=== PATIENT | male | born 1995 | race Caucasian/White ===

== ENCOUNTER 2021-08-19 13:32 | Emergency (ER) | payer BC, OTHER, SELFPAY ==
--- NOTE | 2021-08-19 14:18 | RAD REPORT ---
EXAM DESCRIPTION: CT - Head Brain Wo Cont - 08/19/2021 2:08 pm CLINICAL HISTORY: TRAUMA Trauma, head injury COMPARISON: No comparisons TECHNIQUE: All CT scans are performed using dose optimization technique as appropriate and may inclu de automated exposure control or mA/KV adjustment according to patient size. FINDINGS: No intracranial hemorrhage, hydrocephalus or extra-axial fluid collection.No areas of brai n edema or evidence of midline shift. The paranasal sinuses and mastoids are clear. The calvarium is intact. IMPRESSION: No acute intracranial abnormality.
--- NOTE | 2021-08-19 14:21 | RAD REPORT ---
EXAM DESCRIPTION: CT - Spine Lumbar Wo Con - 08/19/2021 2:08 pm CLINICAL HISTORY: Radiculopathy. LOWER BACK PAIN COMPARISON: No comparisons TECHNIQUE: Axial noncontrast CT imaging of the lumbar spine was performed with coronal and sagittal re-formatted images. All CT scans are performed using dose optimization technique as appropriate and may include automated exposure control or mA/KV adjustment according to patient size. FINDINGS: No acute lumbar spine fracture seen. No aggressive marrow pattern or malalignment. Paraspinal tissues are normal in thickness. No paraspinal abscess or hematoma seen. Mild posterior disc bulges are present lower lumbar spine. IMPRESSION: No acute lumbar spine abnormality. Mild lower lumbar spondylosis is present with bulging of disc material. Follow-up nonemergent MRI lasha ging could be useful.
[2021-08-19] MEDS ORDERED: TETANUS & DIPHTHERIA TOX,ADULT 0.5 ML VIAL ONE (14:40)
--- NOTE | 2021-08-19 14:43 | EDPHYS ---
Physician Documentation [facility] Name: Obdulio Posadas Age: 25 yrs Sex: Male : 1995 Arrival Date: 08/19/2021 Time: 13:33 Bed 13 Private MD: ED Physician Octaviano Horton HPI: 08/19 15:01 This 25 yrs old Male presents to ER via Ambulatory with complaints of Fall Injury, Back kb Pain. 15:01 Details of fall: The patient fell from a height, from a ladder. Onset: The kb symptoms/episode began/occurred just prior to arrival. Associated injuries: The patient sustained injury to the head, pain, injury to the low back, pain, pain with movement, tenderness. Severity of symptoms: At their worst the symptoms were moderate, in the emergency department the symptoms are unchanged. The patient has not experienced similar symptoms in the past. The patient has not recently seen a physician. Pt was on a ladder that was leaned against a house. States he was at roof level when the ladder moved and he fell onto his back. c/o headache and low backp ain. Historical: - Allergies: 13:40 No Known Allergies; jd3 - Home Meds: 13:40 Adderall oral [Active]; jd3 - PMHx: 13:40 ADHD; jd3 - PSHx: 13:40 None; jd3 - Immunization history:: Adult Immunizations up to date, Client reports having NOT received the Covid vaccine. Flu vaccine is not up to date. - Social history:: Smoking status: Patient denies any tobacco usage or history of. - Immunization history: Last tetanus immunization: unknown. ROS: 15:00 Constitutional: Negative for fever, chills, and weight loss. kb 15:00 Back: Positive for pain at rest, pain with movement, of the low back area. 15:00 Neuro: Positive for dizziness, headache. 15:00 All other systems are negative. Exam: 15:00 Constitutional: This is a well developed, well nourished patient who is awake, alert, kb and in no acute distress. Head/Face: Normocephalic, atraumatic. Eyes: Pupils equal round and reactive to light, extra-ocular motions intact. Lids and lashes normal. Conjunctiva and sclera are non-icteric and not injected. Cornea within normal limits. Periorbital areas with no swelling, redness, or edema. ENT: Moist Mucous membranes Cardiovascular: Regular rate and rhythm with a normal S1 and S2. No gallops, murmurs, or rubs. No pulse deficits. Respiratory: Respirations even and unlabored. No increased work of breathing. Talking in full sentences Abdomen/GI: Soft, non-tender. No distention Skin: Warm, dry with normal turgor. Normal color. MS/ Extremity: Pulses equal, no cyanosis. Neurovascular intact. Full, normal range of motion. Neuro: Awake and alert, GCS 15, oriented to person, place, time, and situation. Moves all extremities. Normal gait. Psych: Awake, alert, with orientation to person, place and time. Behavior, mood, and affect are within normal limits. 15:00 Back: pain, that is moderate, of the lumbar area, ROM is painful, normal spinal alignment noted, CVA tenderness, is absent. Vital Signs: 13:41 BP 151 / 97; Pulse 81; Resp 18 S; Temp 97.2(TE); Pulse Ox 100% on R/A; Weight 113.4 kg jd3 (R); Height 5 ft. 10 in. (177.80 cm) (R); Pain 8/10; 13:41 Body Mass Index 35.87 (113.40 kg, 177.80 cm) jd3 Radha Coma Score: 13:51 Eye Response: spontaneous(4). Verbal Response: oriented(5). Motor Response: obeys jd3 commands(6). Total: 15. Trauma Score (Adult): 13:51 Eye Response: spontaneous(1); Verbal Response: oriented(1); Motor Response: obeys jd3 commands(2); Systolic BP: > 89 mm Hg(4); Respiratory Rate: 10 to 29 per min(4); [place] Score: 15; Trauma Score: 12 MDM: 13:45 Patient medically screened. kb 14:59 Data reviewed: vital signs, nurses notes. Data interpreted: Pulse oximetry: on room air kb is 100 %. Interpretation: normal. Counseling: I had a detailed discussion with the patient and/or guardian regarding: the historical points, exam findings, and any diagnostic results supporting the discharge/admit diagnosis, radiology results, the need for outpatient follow up, a family practitioner, to return to the emergency department if symptoms worsen or persist or if there are any questions or concerns that arise at home. 08/19 13:46 Order name: CT Head Brain wo Cont; Complete Time: 14:19 kb 08/19 13:46 Order name: CT Lumbar Spine Wo Con; Complete Time: 14:35 kb Administered Medications: 14:41 Drug: Tetanus-Diphtheria Toxoid Adult 0.5 ml {Exercise Teacher: [employer]. Exp: aa5 10/03/2022. Lot #: [id number]. } Route: IM; Site: right deltoid; 14:50 Follow up: Response: No adverse reaction aa5 Disposition: 17:49 Co-signature as Attending Physician, Octaviano Horton MD I agree with the assessment and kdr plan of care. Disposition Summary: 08/19/21 14:42 Discharge Ordered Location: Home kb Condition: Stable kb Diagnosis - Fall on and from ladder, initial encounter kb - Unspecified injury of head, initial encounter kb - Low back pain kb Followup: kb - With: Emergency Department - When: As needed - Reason: Worsening of condition Followup: kb - With: Private Physician - When: 2 - 3 days - Reason: Recheck today's complaints, Continuance of care, Re-evaluation by your physician Discharge Instructions: - Discharge Summary Sheet kb - Musculoskeletal Pain kb - Head Injury, Adult, [id number] kb Forms: - Medication Reconciliation Form kb - Thank You Letter kb - Antibiotic Education kb - Prescription Opioid Use kb Prescriptions: - Cyclobenzaprine 10 mg Oral Tablet - take 1 tablet by ORAL route every 8 hours As needed; 15 tablet; Refills: 0, kb Product Selection Permitted - Diclofenac Sodium 75 mg Oral tablet,delayed release (DR/EC) - take 1 tablet by ORAL route 2 times per day As needed; 30 tablet; Refills: 0, kb Product Selection Permitted Signatures: Dispatcher [employer] EDMS Petrona Evans, Octaviano You MD MD kdr Calderon, Audri, RN RN aa5 Jules Molina RN RN jd3 Corrections: (The following items were deleted from the chart) 13:41 13:40 PMHx: None; jd3 jd3 14:03 13:47 Forearm Right+RAD.RAD.[email or web address] ordered. EDMS EDMS
--- NOTE | 2021-08-19 14:43 | ER ---
Nurse's Notes [facility] Name: Obdulio Posadas Age: 25 yrs Sex: Male : 1995 Arrival Date: 08/19/2021 Time: 13:33 Bed 13 Private MD: Diagnosis: Fall on and from ladder, initial encounter;Unspecified injury of head, initial encounter;Low back pain Presentation: 08/19 13:39 Chief complaint: Spouse and/or significant other states: "He was working on his mom's [employer] house and fell off a ladder and landed on his back and hit his head. no LOC.". Coronavirus screen: At this time, the client does not indicate any symptoms associated with coronavirus-19. Ebola Screen: No symptoms or risks identified at this time. Initial Sepsis Screen: Does the patient meet any 2 criteria? No. Patient's initial sepsis screen is negative. Does the patient have a suspected source of infection? No. Patient's initial sepsis screen is negative. Risk Assessment: Do you want to hurt yourself or someone else? Patient reports no desire to harm self or others. Onset of symptoms was August 19, 2021. 13:39 Method Of Arrival: Ambulatory j 13:39 Acuity: PRISCILLA 3 jd3 13:53 Care prior to arrival: None. Mechanism of Injury: Fall from . Trauma event jd3 details: Injury occurred in the [facility], Injury occurred: at home. Injury occurred: August 19, 2021 Injury occurred at: 13:20. Trauma Activation: Alert Physician: ED Physician; Name: Florence; Notified At: 13:50; Arrived At: 13:50 Physician: General Surgeon; Name: ; Notified At: 13:50; Arrived At: Physician: Radiology; Name: precision optics technician and hydrotechnical specialist; Notified At: 13:50; Arrived At: 13:50 Physician: Respiratory; Name: ; Notified At: 13:50; Arrived At: Physician: Lab; Name: ; Notified At: 13:50; Arrived At: Historical: - Allergies: 13:40 No Known Allergies; jd3 - Home Meds: 13:40 Adderall oral [Active]; jd3 - PMHx: 13:40 ADHD; jd3 - PSHx: 13:40 None; jd3 - Immunization history:: Adult Immunizations up to date, Client reports having NOT received the Covid vaccine. Flu vaccine is not up to date. - Social history:: Smoking status: Patient denies any tobacco usage or history of. - Immunization history: Last tetanus immunization: unknown. Screenin:51 Abuse screen: Denies threats or abuse. Nutritional screening: No deficits noted. jd3 Tuberculosis screening: No symptoms or risk factors identified. 14:30 Fall Risk None identified. aa5 Primary Survey: 13:48 NO uncontrolled hemorrhage observed. A: The patient is alert. Airway: patent, No jd3 supplemental oxygen in use on arrival. Oral cavity: clear, Trachea midline. Breathing/Chest: Respiratory pattern: regular, Respiratory effort: spontaneous, unlabored, Breath sounds: clear, bilaterally. Chest inspection: symmetrical rise and fall of the chest. Circulation: Heart tones present. Pulses: palpable right radial artery and left radial artery. Skin color: pink, Skin temperature: warm. Disability Alert. Exposure/Environment: All clothing and personal items were removed. Forensic evidence collection is not deemed to be indicated at this time. Items placed in patient belonging bag. There is no evidence of uncontrolled external bleeding. No obvious injuries are noted at this time. A warming method has been applied: A warm blanket has been provided to the patient. 14:30 Reassessment Airway Airway Patent Breathing/Chest Respiratory pattern Regular aa5 Respiratory effort Spontaneous Unlabored Circulation Color Turin Disability Alert. Secondary Survey: 13:48 HEENT: No deficits noted. Gastrointestinal: No deficits noted. : No signs and/or jd3 symptoms were reported regarding the genitourinary system. Musculoskeletal: Circulation, motion, and sensation intact. Range of motion: intact in all extremities. Assessment: 13:45 General: Appears uncomfortable, Behavior is calm, cooperative, appropriate for age. jd3 Pain: Complains of pain in head, back and right arm Quality of pain is described as sharp, tender. Neuro: Level of Consciousness is awake, alert, obeys commands, Oriented to person, place, time, situation, Reports dizziness, headache. EENT: No signs and/or symptoms were reported regarding the EENT system. Cardiovascular: Denies Capillary refill < 3 seconds Patient's skin is warm and dry. Respiratory: Airway is patent Respiratory effort is even, unlabored, Respiratory pattern is regular, symmetrical, Denies cough, shortness of breath. GI: Abdomen is round non-distended, Abd is soft and non tender X 4 quads. Patient currently denies nausea, vomiting. : No signs and/or symptoms were reported regarding the genitourinary system. Derm: Skin is intact, Skin is dry, Skin is normal, Skin temperature is warm. Musculoskeletal: Circulation, motion, and sensation intact. Range of motion: intact in all extremities. 14:30 General: Appears uncomfortable, Behavior is calm, cooperative. Pain: Complains of pain aa5 in right arm and back and head Pain currently is 8 out of 10 on a pain scale. Quality of pain is described as sharp, tender, throbbing, Pain began post fall from ladder, approximately 10-12 feet. Is continuous, Aggravated by increased activity, repositioning. Neuro: Level of Consciousness is awake, alert, obeys commands, Oriented to person, place, time, situation. Cardiovascular: Heart tones S1 S2 present Capillary refill < 3 seconds is brisk in bilateral fingers Patient's skin is warm and dry. Rhythm is regular. Respiratory: Airway is patent Respiratory effort is even, unlabored, Respiratory pattern is regular, symmetrical. GI: Abdomen is round non-distended, Abd is soft and non tender X 4 quads. Patient currently denies nausea, vomiting. : No signs and/or symptoms were reported regarding the genitourinary system. EENT: No signs and/or symptoms were reported regarding the EENT system. Derm: Skin is pink, warm \\T\\ dry. Superficial laceration noted to right hand, no active bleeding noted. Musculoskeletal: Range of motion: intact in all extremities. 14:50 Reassessment: Patient is alert, oriented x 3, equal unlabored respirations, skin aa5 warm/dry/pink. Vital Signs: 13:41 BP 151 / 97; Pulse 81; Resp 18 S; Temp 97.2(TE); Pulse Ox 100% on R/A; Weight 113.4 kg jd3 (R); Height 5 ft. 10 in. (177.80 cm) (R); Pain 8/10; 13:41 Body Mass Index 35.87 (113.40 kg, 177.80 cm) jd3 Radha Coma Score: 13:51 Eye Response: spontaneous(4). Verbal Response: oriented(5). Motor Response: obeys jd3 commands(6). Total: 15. Trauma Score (Adult): 13:51 Eye Response: spontaneous(1); Verbal Response: oriented(1); Motor Response: obeys jd3 commands(2); Systolic BP: > 89 mm Hg(4); Respiratory Rate: 10 to 29 per min(4); [place] Score: 15; Trauma Score: 12 ED Course: 13:33 Patient arrived in ED. as 13:39 Petrona Evans FNP-C is [facility]. kb 13:39 Octaviano Horton MD is Attending Physician. kb 13:40 Triage completed. jd3 13:42 Arm band placed on. jd3 13:52 Patient notified of wait time Patient pt to CT with manufacturing lab technician and hydrotechnical specialist. jd3 13:53 Patient maintains SpO2 saturation greater than 95% on room air. Thermoregulation: warm jd3 blanket given to patient. 14:10 CT Head Brain wo Cont In Process Unspecified. EDMS 14:10 CT Lumbar Spine Wo Con In Process Unspecified. EDMS 14:30 Patient has correct armband on for positive identification. Placed in gown. Bed in low aa5 position. Call light in reach. Side rails up X2. Adult w/ patient. 14:50 No provider procedures requiring assistance completed. Patient did not have IV access aa5 during this emergency room visit. Administered Medications: 14:41 Drug: Tetanus-Diphtheria Toxoid Adult 0.5 ml {Digital Content Specialist: [employer]. Exp: aa5 10/03/2022. Lot #: [id number]. } Route: IM; Site: right deltoid; 14:50 Follow up: Response: No adverse reaction aa5 Intake: 14:50 PO: 0ml; Total: 0ml. aa5 Outcome: 14:42 Discharge ordered by . kb 14:42 Patient's length of stay was not longer than 2 hours. aa5 14:49 Discharged to home ambulatory, with significant other. aa5 14:49 Condition: stable 14:49 Discharge instructions given to patient, Instructed on discharge instructions, follow up and referral plans. medication usage, Demonstrated understanding of instructions, follow-up care, medications, Prescriptions given X 2. 14:50 Patient left the ED. aa5 Signatures: Dispatcher [employer] EDPetrona Hutton, SUMMER TAYLOR-Fanny Galeas Audri RN RN aa5 Jules Molina RN RN jd3 Corrections: (The following items were deleted from the chart) 13:41 13:40 PMHx: None; jd3 jd3 13:54 13:53 Trauma Activation: Alert; ED Physician Clifford/Nathan notified at jd3 13:50, arrived at 13:50; General Surgeon notified at 13:50; Radiology notified at 13:50; Respiratory notified at 13:50; Lab notified at 13:50 jd3
[2021-08-19 23:07] VITALS: BP 151/97; TEMP 97.2; O2SAT 100
== END 2021-08-19 14:50 | disposition home or self-care (01) ==
LOC: ER 13:32
DX: S09.90XA Unspecified injury of head, initial encounter (principal); R51.9 Headache, unspecified; M54.50 Low back pain, unspecified; W11.XXXA Fall on and from ladder, initial encounter; Z23 Encounter for immunization; F90.9 Attention-deficit hyperactivity disorder, unspecified type
CPT/HCPCS: 70450; 72131; 90471; 90714; 99284

== ENCOUNTER 2023-11-14 18:06 | Emergency (ER) | payer BC ==
[2023-11-14] MEDS ORDERED: TDAP (DIPHTH,PERTUSS(ACELL),TET VAC) 0.5 ML VIAL IMVAC ONE (18:26)
--- NOTE | 2023-11-14 19:12 | RAD REPORT ---
EXAM DESCRIPTION: RAD - Forearm Right - 11/14/2023 7:01 pm CLINICAL HISTORY: laceration COMPARISON: <Comparisons> FINDINGS: Soft tissue laceration is seen involving the forearm. No fracture or radiopaque foreign crow dy.
[2023-11-14] MEDS ORDERED: LIDOCAINE 1% 20 ML MDV ONE (19:16)
[2023-11-14] MEDS ORDERED: LIDOCAINE 2% W/EPI 1:200,000 MPF 20 ML VIAL IM ONE (19:18)
[2023-11-14] MEDS ORDERED: HYDROCODONE/APAP 5/325 MG TAB ONE (19:57)
--- NOTE | 2023-11-14 20:44 | EDPHYS ---
Physician Documentation [facility] Name: Obdulio Posadas Age: 27 yrs Sex: Male : 1995 Arrival Date: 11/14/2023 Time: 18:06 Bed 9 Private MD: ED Physician Rahul Fernandez HPI: 11/13 20:46 This 27 yrs old Male presents to ER via EMS with complaints of Laceration. ms3 20:46 . ms3 20:48 27-year-old male with past medical history of hypertension presents to the emergency ms3 department status post right forearm laceration. Patient states he was leaning on a glass decoration on his garage door when it broke causing laceration of his right forearm. Historical: - Allergies: 18:19 No Known Allergies; al5 - PMHx: 18:19 Hypertensive disorder; al5 - Immunization history:: Adult Immunizations up to date, Last tetanus immunization: unknown, Last tetanus immunization: up to date. - Infectious Disease History:: Denies. - Social history:: Smoking status: Patient denies any tobacco usage or history of. ROS: 20:51 Constitutional: Negative for fever, and chills. Neck: Negative for injury, pain, and ms3 swelling, Cardiovascular: Negative for chest pain, and palpitations. Respiratory: Negative for shortness of breath, cough, wheezing, and pleuritic chest pain, Abdomen/GI: Negative for abdominal pain, nausea, vomiting, diarrhea, and constipation, 20:51 Skin: Positive for laceration(s), Exam: 20:51 Constitutional: This is a well developed, well nourished patient who is awake, alert, ms3 and in no acute distress. Chest/axilla: Normal chest wall appearance and motion. Nontender with no deformity. Cardiovascular: Regular rate and rhythm with a normal S1 and S2. No gallops, murmurs, or rubs. Normal PMI, no JVD. No pulse deficits. Respiratory: Lungs have equal breath sounds bilaterally, clear to auscultation and percussion. No rales, rhonchi or wheezes noted. No increased work of breathing, no retractions or nasal flaring. Abdomen/GI: Soft, non-tender, with normal bowel sounds. No distension or tympany. No guarding or rebound. No evidence of tenderness throughout. 20:51 Skin: injury, laceration(s), the wound is approximately 3 cm(s), of the right arm, the second wound is approximately 3 cm(s), of the right arm, Vital Signs: 18:17 BP 124 / 84; Pulse 89; Resp 18; Temp 98.3(TE); Pulse Ox 100% ; Weight 113.4 kg; Height al5 5 ft. 10 in. ; Pain 6/10; 19:40 BP 131 / 71; Pulse 73; Resp 16; Pulse Ox 100% on R/A; al5 18:17 Body Mass Index 35.87 (113.40 kg, 177.8 cm) al5 18:17 Pain Scale: Adult al5 MDM: 18:07 Patient medically screened. ms3 20:51 Differential diagnosis: laceration vs ROFB vs fx. Data reviewed: vital signs, nurses ms3 notes, radiologic studies, plain films, and as a result, I will discharge patient. I considered the following discharge prescriptions or medication management in the emergency department Medications were administered in the Emergency Department. See MAR. Independent interpretation of the following test(s) in the Emergency Department X-Ray: My interpretation is Right forearm x-ray images reviewed by me does not reveal ROFB. Historians other than the Patient: EMS: [facility]. Care significantly affected by the following chronic conditions: Hypertension. Counseling: I had a detailed discussion with the patient and/or guardian regarding the historical points, exam findings, and any diagnostic results supporting the discharge/admit diagnosis, radiology results, the need for outpatient follow up, to return to the emergency department if symptoms worsen or persist or if there are any questions or concerns that arise at home. Special discussion: I discussed with the patient/guardian in detail that at this point there is no indication for admission to the hospital. It is understood, however, that if the symptoms persist or worsen the patient needs to return immediately for re-evaluation. ED course: Patient's 2 laceration sutured with terell and hemostasis achieved. Patient's right hand neurovascular intact with radial pulse 2+4. Patient to follow-up with his primary care physician in 10 to 14 days for staple removal. Patient understands and agrees with plan. All questions were answered. Return precautions discussed include erythema, exudative drainage, or any other concerns. 11/13 18:08 Order name: Forearm Right XRAY; Complete Time: 19:13 ms3 11/13 19:13 Order name: Dressing - Wound; Complete Time: 21:03 ms3 11/13 19:13 Order name: Gloves, Sterile; Complete Time: 19:15 ms3 11/13 19:13 Order name: Setup Suture Tray; Complete Time: 21:03 ms3 Administered Medications: 18:30 Not Given (Physician Discretion): boostrix tdap0.5 ml IM once; as a single dose al5 20:01 Drug: HYDROcodone-acetaminophen PO 5 mg-325 mg 1 tabs PO once Route: PO; al5 21:03 Follow up: Response: No adverse reaction cm10 21:03 Drug: Lidocaine Infiltration (1 %) 20 ml 20 ml Infiltration once; to bedside {Note: cm10 give by provider.} Volume: 20 ml; Route: Infiltration; Disposition Summary: 11/14/23 20:43 Discharge Ordered Notes: Location: Home ms3 Condition: Stable ms3 Diagnosis - Laceration without foreign body of right forearm ms3 Followup: ms3 - With: Private Physician - When: 10 - 14 days - Reason: Staple/Suture removal Discharge Instructions: - Discharge Summary Sheet ms3 - Sutures, [place], or Adhesive Wound Closure, [id number] ms3 Forms: - Medication Reconciliation Form ms3 - Antibiotic Education ms3 - Prescription Opioid Use ms3 - Patient Portal Instructions ms3 - Leadership Thank You Letter ms3 Signatures: Dispatcher [employer] Rahul Zamora DO DO ms3 Annabella Jones RN RN cm10 Grazyna Mcgraw RN RN al5 Corrections: (The following items were deleted from the chart) 18:20 18:19 PMHx: adhd; al5 al5
--- NOTE | 2023-11-14 20:44 | ER ---
Nurse's Notes [facility] Name: Obdulio Posadas Age: 27 yrs Sex: Male : 1995 Arrival Date: 11/14/2023 Time: 18:06 Bed 9 Private MD: Diagnosis: Laceration without foreign body of right forearm Presentation: 11/13 18:17 Chief complaint: EMS states: was trying to close the garage door and cut his R forearm. al5 Coronavirus screen: At this time, the client does not indicate any symptoms associated with coronavirus-19. Ebola Screen: No symptoms or risks identified at this time. Initial Sepsis Screen: Does the patient meet any 2 criteria? No. Patient's initial sepsis screen is negative. Does the patient have a suspected source of infection? No. Patient's initial sepsis screen is negative. Risk Assessment: Do you want to hurt yourself or someone else? Patient reports no desire to harm self or others. Onset of symptoms was November 14, 2023. 18:17 Method Of Arrival: EMS: [facility] al5 18:17 Acuity: PRISCILLA 4 al5 Triage Assessment: 18:20 General: Appears in no apparent distress. Behavior is calm, cooperative. Pain: al5 Complains of pain in dorsal aspect of right forearm and palmar aspect of right forearm Pain currently is 6 out of 10 on a pain scale. Pain began 30 min ago. Is continuous. EENT: No deficits noted. Neuro: No deficits noted. Level of Consciousness is awake, alert, obeys commands, Oriented to person, place, time. Cardiovascular: No deficits noted. Patient's skin is warm and dry. Respiratory: No deficits noted. Airway is patent Trachea midline Respiratory effort is even, unlabored, Respiratory pattern is regular, symmetrical. GI: No deficits noted. No signs and/or symptoms were reported involving the gastrointestinal system. : No deficits noted. No signs and/or symptoms were reported regarding the genitourinary system. Derm: Skin is diaphoretic, being outside, sweating Skin is pink, warm \T\ dry. normal, Reports laceration to R forearm after trying to close garage door. Injury Description: Laceration sustained to dorsal aspect of right forearm and palmar aspect of right forearm was sustained 30-60 minutes ago. moderate bleeding noted at this time. Historical: - Allergies: 18:19 No Known Allergies; al5 - PMHx: 18:19 Hypertensive disorder; al5 - Immunization history:: Adult Immunizations up to date, Last tetanus immunization: unknown, Last tetanus immunization: up to date. - Infectious Disease History:: Denies. - Social history:: Smoking status: Patient denies any tobacco usage or history of. Screenin:23 [facility] ED Fall Risk Assessment (Adult) History of falling in the last 3 months, al5 including since admission No falls in past 3 months (0 pts) Confusion or Disorientation No (0 pts) Intoxicated or Sedated No (0 pts) Impaired Gait No (0 pts) Mobility Assist Device Used No (0 pt) Altered Elimination No (0 pt) Score/Fall Risk Level 0 - 2 = Low Risk Oriented to surroundings, Maintained a safe environment, Hourly rounding (assess needs \T\ fall precautionary measures) done. Abuse screen: Denies threats or abuse. Denies injuries from another. Nutritional screening: No deficits noted. Tuberculosis screening: No symptoms or risk factors identified. Assessment: 18:22 General: see triage note. Pain: Complains of pain in right arm and palmar aspect of al5 right forearm and dorsal aspect of right forearm Pain currently is 6 out of 10 on a pain scale. Pain began 30 min ago. Is continuous. Neuro: No deficits noted. Level of Consciousness is awake, alert, obeys commands. Cardiovascular: No deficits noted. Patient's skin is warm and dry. Respiratory: Airway is patent Trachea midline Respiratory effort is even, unlabored, Respiratory pattern is regular, symmetrical. GI: No deficits noted. No signs and/or symptoms were reported involving the gastrointestinal system. : No deficits noted. No signs and/or symptoms were reported regarding the genitourinary system. EENT: No deficits noted. No signs and/or symptoms were reported regarding the EENT system. Derm: Reports laceration to R forearm after trying to close garage door. Musculoskeletal: No deficits noted. No signs and/or symptoms reported regarding the musculoskeletal system. Vital Signs: 18:17 BP 124 / 84; Pulse 89; Resp 18; Temp 98.3(TE); Pulse Ox 100% ; Weight 113.4 kg; Height al5 5 ft. 10 in. ; Pain 6/10; 19:40 BP 131 / 71; Pulse 73; Resp 16; Pulse Ox 100% on R/A; al5 18:17 Body Mass Index 35.87 (113.40 kg, 177.8 cm) al5 18:17 Pain Scale: Adult al5 ED Course: 18:07 Patient arrived in ED. ms3 18:07 Rahul Fernandez DO is Attending Physician. ms3 18:10 Grazyna Mcgraw, RN is Primary Nurse. al5 18:19 Triage completed. al5 18:23 Patient has correct armband on for positive identification. Bed in low position. Call al5 light in reach. Side rails up X 1. Provided Education on: need for stitches/terell, medication administration, tetanus shot. 19:03 Forearm Right XRAY In Process Unspecified. EDMS 21:03 Assist provider with laceration repair on right arm using terell. Set up tray. cm10 Performed by Rahul Fernandez DO Dressed with 4X4s, Anali, Patient tolerated well. Patient did not have IV access during this emergency room visit. Wound care: to laceration located on right arm was cleaned with dressed with 4X4s, cling. 21:05 Arm band placed on. cm10 Administered Medications: 18:30 Not Given (Physician Discretion): boostrix tdap0.5 ml IM once; as a single dose al5 20:01 Drug: HYDROcodone-acetaminophen PO 5 mg-325 mg 1 tabs PO once Route: PO; al5 21:03 Follow up: Response: No adverse reaction cm10 21:03 Drug: Lidocaine Infiltration (1 %) 20 ml 20 ml Infiltration once; to bedside {Note: cm10 give by provider.} Volume: 20 ml; Route: Infiltration; Medication: 21:05 VIS not applicable for this client. cm10 Outcome: 20:43 Discharge ordered by . ms3 21:05 Discharged to home ambulatory, with family, cm10 21:05 Condition: good 21:05 Discharge instructions given to patient, Instructed on discharge instructions, the need for admit, wound care, Demonstrated understanding of 21:05 Patient left the ED. cm10 Signatures: Dispatcher [employer] EDMS Rahul Fernandez DO DO ms3 Annabella Jones RN RN cm10 Grazyna Mcgraw RN RN al5 Corrections: (The following items were deleted from the chart) 18:20 18:19 PMHx: adhd; al5 al5
[2023-11-14 21:37] VITALS: BP 131/71; TEMP 98.3; O2SAT 100
== END 2023-11-14 21:05 | disposition home or self-care (01) ==
LOC: ER 18:06
PROC: 0HQDXZZ Repair Right Lower Arm Skin, External Approach (ICD-10-PCS; principal; 2023-11-14)
DX: S51.811A Laceration without foreign body of right forearm, initial encounter (principal)
CPT/HCPCS: 99284; J2001

== ENCOUNTER 2023-11-14 21:11 | Emergency (ER) | payer BC ==
[2023-11-14] MEDS ORDERED: LIDOCAINE 1% 20 ML MDV ONE ×2 (21:32→21:35)
[2023-11-14] MEDS ORDERED: NA CHLORIDE 0.9% 1,000 ML ONE ×2 (21:32→21:33)
[2023-11-14] MEDS ORDERED: METOCLOPRAMIDE 10 MG/2mL INJ ONE (21:33)
[2023-11-14] MEDS ORDERED: KETOROLAC 30 MG/ML INJ ONE (21:33)
[2023-11-14 22:10] LABS: Albumin 4.4 g/dL (3.4-5.0); Albumin/Globulin Ratio 1.4 (1.1-1.8); Anion Gap 7.6 mEq/L (5.0-15.0); Bilirubin Total 0.5 mg/dL (0.2-1.0); Globulin 3.1 g/dL (2.3-3.5); Potassium 3.6 mEq/L (3.5-5.1); Protein, Total 7.5 g/dL (6.4-8.2)
[2023-11-14 22:18] LABS: Absolute Lymphocytes (CBC) 2.2 K/uL (0.7-4.9); Absolute Monocytes 0.9 K/uL (0.1-1.3); Absolute Neutrophil 13.9 K/uL (1.8-8.0); Basophils % 0.3 % (0-1.3); Eosinophils % 0.1 % (0-4.4); Hematocrit 42.8 % (39.6-49.0); Hemoglobin 14.2 g/dL (13.6-17.9); Lymphocytes % 12.8 % (15.3-44.8); MCH 30.4 pg (27.0-35.0); MCHC 33.3 g/dL (32.0-36.0); MCV 91.4 fL (80-100); Monocytes % 5.2 % (3.3-12.3); Neutrophils % 81.6 % (41.7-73.7); Platelets 401 thou/uL (152-406); RBC Red Blood Cell Count 4.68 M/uL (4.33-5.43); Red Cell Distribution Width 13.6 % (12.1-15.2)
--- NOTE | 2023-11-14 23:51 | EDPHYS ---
Physician Documentation [facility] Name: Obdulio Posadas Age: 27 yrs Sex: Male : 1995 Arrival Date: 11/14/2023 Time: 21:11 Bed 7 Private MD: ED Physician Mau Figueroa HPI: 11/13 21:14 This 27 yrs old Male presents to ER via Unassigned with complaints of Near sp4 Syncope. 11/14 05:55 Patient was here earlier today for right forearm lacerations that were stable. On the sp4 way out of the ER patient became faint and reported near syncopal episode. Patient returns to the ER to be evaluated for near syncopal episode. Patient reports active bleeding from the right forearm stapled laceration.. Historical: - Allergies: 11/13 21:27 No Known Allergies; tl4 - Home Meds: 21:27 None [Active]; tl4 - PMHx: 21:27 Hypertensive disorder; tl4 - Immunization history:: Adult Immunizations unknown. - Infectious Disease History:: Denies. - Social history:: Smoking status: Patient denies any tobacco usage or history of. - Family history:: not pertinent. ROS: 11/14 05:55 Constitutional: Negative for fever, chills, and weight loss, positive near syncopal sp4 episode, positive generalized pallor, positive bleeding right forearm laceration. All other systems are negative, Exam: 11/13 23:42 Abdomen/GI: Exam negative for distension, guarding, hepatomegaly, sp4 Constitutional: This is a well developed, well nourished patient who is awake, alert, and in no acute distress. Head/Face: Normocephalic, atraumatic. Eyes: Pupils equal round and reactive to light, extra-ocular motions intact. Lids and lashes normal. Conjunctiva and sclera are not injected. Cornea within normal limits. Periorbital areas with no swelling, redness, or edema. ENT: Nares patent. No nasal discharge, no septal abnormalities noted. Tympanic membranes are normal and external auditory canals are clear. Oropharynx with no redness, swelling, or masses, exudates, or evidence of obstruction, uvula midline. Mucous membranes moist. Neck: Trachea midline, no thyromegaly or masses palpated, and no cervical lymphadenopathy. Supple, full range of motion without nuchal rigidity, or vertebral point tenderness. Chest/axilla: Normal chest wall appearance and motion. Nontender with no deformity. No lesions are appreciated. Cardiovascular: Regular rate and rhythm with a normal S1 and S2. No gallops, murmurs, or rubs. Normal PMI, no JVD. No pulse deficits. Respiratory: Lungs have equal breath sounds bilaterally, clear to auscultation and percussion. No rales, rhonchi or wheezes noted. No increased work of breathing, no retractions or nasal flaring. Abdomen/GI: Soft, with normal bowel sounds. No distension or tympany. No guarding or rebound. No evidence of tenderness throughout. Back: No spinal tenderness. No costovertebral tenderness. Skin: Warm, dry with normal turgor. Normal color with no rashes, no lesions, and no evidence of cellulitis. MS/ Extremity: Pulses equal, no cyanosis. Neurovascular intact. Full, normal range of motion. Right foream laceration X 2 Neuro: Awake and alert, GCS 15, oriented to person, place, time, and situation. Cranial nerves II-XII grossly intact. Motor strength 5/5 in all extremities. Sensory grossly intact. Psych: Awake, alert, with orientation to person, place and time. Behavior, mood, and affect are within normal limits ECG was reviewed by the Attending Physician. EKG at 2129 normal sinus rhythm with a rate of 78, normal EKG. Vital Signs: 21:20 BP 123 / 65; Pulse 62; Resp 18; Temp 98.7; Pulse Ox 99% on R/A; Weight 113.4 kg; Height tl4 5 ft. 10 in. ; Pain 8/10; 21:38 BP 120 / 64; Pulse 70; Resp 18; Temp 98; Pulse Ox 96% ; rg5 23:44 BP 130 / 68; Pulse 88; Resp 17; Temp 98; Pulse Ox 97% ; Pain 0/10; rg5 21:20 Body Mass Index 35.87 (113.40 kg, 177.8 cm) tl4 21:20 Pain Scale: Adult tl4 23:44 Pain Scale: Adult rg5 Radha Coma Score: 23:42 Eye Response: spontaneous(4). Motor Response: obeys commands(6). Verbal Response: sp4 oriented(5). Total: 15. 23:44 Eye Response: spontaneous(4). Motor Response: obeys commands(6). Verbal Response: rg5 oriented(5). Total: 15. Laceration: 23:42 Wound Repair of 3cm ( 1.2in ) subcutaneous laceration to dorsal aspect of right forearm sp4 - diagonal laceration 3 cm long , with bee but bleeding through the bee, Bee removed and laceration repareid with sutures . Irregularly shaped.. Minimal bleeding noted.. Distal neuro/vascular/tendon intact. Anesthesia: Wound infiltrated with 20 mls of 1% lidocaine. Wound prep: Moderate cleansing by me, Copious irrigation. Skin closed with 7 4-0 Silk using vertical mattress sutures and sterile technique. Dressed with 4x4's, Kerlix, non-adherent dressing. Patient tolerated well. 23:42 Wound Repair of 3cm ( 1.2in ) subcutaneous laceration to palmar aspect of right forearm sp4 - right mid forearm laceration 3 cm closed with bee , but mild amount of bleeding present, staple taken out and lac sutures with silk 4-0. Linear shaped.. Minimal bleeding noted.. Distal neuro/vascular/tendon intact. Anesthesia: Wound infiltrated with 10 mls of 1% lidocaine. Wound prep: Moderate cleansing by me, Copious irrigation. Skin closed with 4 4-0 Silk using vertical mattress sutures and sterile technique. Dressed with 4x4's, Kerlix, non-adherent dressing. Patient tolerated well. MDM: 21:21 Patient medically screened. [facility] 11/14 05:56 Differential Diagnosis: cardiac arrhythmia, cerebrovascular accident, GI bleed, sp4 idiopathic syncope, pseudo seizure. Data reviewed: vital signs, nurses notes. ED course: Patient has improved after IV hydration and is feeling much better. Stable for discharge home. Advised wound care to right forearm.. 11/13 21:21 Order name: CBC with Diff; Complete Time: 23:39 [facility] 11/13 21:21 Order name: CMP; Complete Time: 23:39 [facility] 11/13 21:22 Order name: Alcohol Level; Complete Time: 23:39 [facility] 11/13 21:28 Order name: EKG; Complete Time: 21:28 [facility] 11/13 21:28 Order name: EKG - Nurse/Tech; Complete Time: 21:34 sp EC/01 23:42 Rate is 78 beats/min. Rhythm is regular, Normal Sinus Rhythm. QRS [place] is Normal. DC sp4 interval is normal. QRS interval is normal. QT interval is normal. No Q waves. T waves are Normal. No ST changes noted. Clinical impression: Normal ECG. Interpreted by me. Reviewed by me. Administered Medications: 23:58 Discontinued: ns 0.9% 1000 ml IV at 1 bolus Per protocol; 1000 mL bolus jh8 23:57 Discontinued: ns 0.9% 1000 ml IV at 1 bolus Per protocol; 1000 mL bolus jh8 21:37 Drug: NS 0.9% IV 1000 ml IV at 1 bolus Per protocol; 1000 mL bolus Route: IV; Rate: 1 rg5 bolus; Site: left antecubital; 23:58 Follow up: Response: No adverse reaction; IV Status: Completed infusion jh8 21:37 Drug: Ketorolac IVP 30 mg IVP once Route: IVP; Site: left antecubital; rg5 23:58 Follow up: Response: No adverse reaction jh8 21:37 Drug: metoCLOPramide IVP 10 mg IVP once; over 1 to 2 minutes Route: IVP; Site: left rg5 antecubital; 23:58 Follow up: Response: No adverse reaction jh8 21:37 Drug: Lidocaine Infiltration (1 %) 20 ml 20 ml Infiltration once; to bedside Volume: 20 rg5 ml; Route: Infiltration; 23:57 Follow up: Response: No adverse reaction jh8 21:38 Drug: NS 0.9% IV 1000 ml IV at 1 bolus Per protocol; 1000 mL bolus Route: IV; Rate: 1 rg5 bolus; Site: left antecubital; 23:58 Follow up: Response: No adverse reaction; IV Status: Completed infusion 8 Disposition Summary: 11/14/23 23:50 Discharge Ordered Notes: Location: Home sp4 Problem: new sp4 Symptoms: have improved sp4 Condition: Stable sp4 Diagnosis - Laceration without foreign body of right forearm sp4 - Syncope Near sp4 - Acute near syncopal episoded sp4 Followup: sp4 - With: Private Physician - When: after 14 days - suture removal - Reason: Recheck today's complaints Discharge Instructions: - Discharge Summary Sheet sp4 - Near-Syncope sp4 Forms: - Work release form sp4 - Patient Portal Instructions sp4 Signatures: Dispatcher [employer] Mau Nina MD MD sp4 Miguel Oliver RN RN tl4 Juan Ramon Rivas RN RN rg5 Mat Randall RN jh8
--- NOTE | 2023-11-14 23:51 | ER ---
Nurse's Notes [facility] Name: Obdulio Posadas Age: 27 yrs Sex: Male : 1995 Arrival Date: 11/14/2023 Time: 21:11 Bed 7 Private MD: Diagnosis: Laceration without foreign body of right forearm;Syncope Near;Acute near syncopal episoded Presentation: 11/13 21:20 Chief complaint: Patient states: Pt states he was discharged from ED a few minutes ago tl4 s/p right arm laceration repair. Pt states he became dizzy upon standing and had significantly increased pain in right arm. Pt states he felt like he was going to pass out. Coronavirus screen: At this time, the client does not indicate any symptoms associated with coronavirus-19. Ebola Screen: No symptoms or risks identified at this time. Initial Sepsis Screen: Does the patient meet any 2 criteria? No. Patient's initial sepsis screen is negative. Does the patient have a suspected source of infection? No. Patient's initial sepsis screen is negative. Risk Assessment: Do you want to hurt yourself or someone else? Patient reports no desire to harm self or others. Onset of symptoms was November 14, 2023 at 21:15. 21:20 Method Of Arrival: Wheelchair tl4 21:20 Acuity: PRISCILLA 3 tl4 Triage Assessment: 21:27 General: Appears ill, Behavior is cooperative. Pain: Complains of pain in right arm. tl4 EENT: No signs and/or symptoms were reported regarding the EENT system. Neuro: Level of Consciousness is awake, alert, obeys commands, Oriented to person, place, time, situation, Moves all extremities. Neuro: Reports dizziness. Cardiovascular: Capillary refill < 3 seconds skin pale, clammy. Respiratory: Airway is patent Respiratory effort is even, unlabored, Respiratory pattern is regular, symmetrical, Breath sounds are clear bilaterally. GI: No signs and/or symptoms were reported involving the gastrointestinal system. : No signs and/or symptoms were reported regarding the genitourinary system. Derm: No signs and/or symptoms reported regarding the dermatologic system. Musculoskeletal: Reports pain in right arm. Historical: - Allergies: 21: No Known Allergies; tl4 - Home Meds: 21:27 None [Active]; tl4 - PMHx: 21:27 Hypertensive disorder; tl4 - Immunization history:: Adult Immunizations unknown. - Infectious Disease History:: Denies. - Social history:: Smoking status: Patient denies any tobacco usage or history of. - Family history:: not pertinent. Screenin:42 [facility] ED Fall Risk Assessment (Adult) History of falling in the last 3 months, rg5 including since admission No falls in past 3 months (0 pts) Confusion or Disorientation No (0 pts) Intoxicated or Sedated No (0 pts) Impaired Gait No (0 pts) Mobility Assist Device Used No (0 pt) Altered Elimination No (0 pt) Score/Fall Risk Level 0 - 2 = Low Risk. Abuse screen: Denies threats or abuse. Nutritional screening: No deficits noted. Tuberculosis screening: No symptoms or risk factors identified. Assessment: 23:42 Reassessment: Patient and/or family updated on plan of care and expected duration. Pain rg5 level reassessed. Patient is alert, oriented x 3, equal unlabored respirations, skin warm/dry/pink. Patient states feeling better. Neuro: Level of Consciousness is awake, alert, Oriented to person, place, time, situation. Cardiovascular: Capillary refill < 3 seconds. Respiratory: Airway is patent. GI: No signs and/or symptoms were reported involving the gastrointestinal system. : No deficits noted. Vital Signs: 21:20 BP 123 / 65; Pulse 62; Resp 18; Temp 98.7; Pulse Ox 99% on R/A; Weight 113.4 kg; Height tl4 5 ft. 10 in. ; Pain 8/10; 21:38 BP 120 / 64; Pulse 70; Resp 18; Temp 98; Pulse Ox 96% ; rg5 23:44 BP 130 / 68; Pulse 88; Resp 17; Temp 98; Pulse Ox 97% ; Pain 0/10; rg5 21:20 Body Mass Index 35.87 (113.40 kg, 177.8 cm) tl4 21:20 Pain Scale: Adult tl4 23:44 Pain Scale: Adult rg5 Radha Coma Score: 23:42 Eye Response: spontaneous(4). Motor Response: obeys commands(6). Verbal Response: sp4 oriented(5). Total: 15. 23:44 Eye Response: spontaneous(4). Motor Response: obeys commands(6). Verbal Response: rg5 oriented(5). Total: 15. ED Course: 21:13 Patient arrived in ED. im 21:14 Mau Figueroa MD is Attending Physician. sp4 21:27 Triage completed. tl4 21:29 Arm band placed on right wrist. tl4 21:34 Inserted saline lock: 20 gauge in left antecubital area, using aseptic technique. Blood rc3 collected. 21:34 CMP Sent. rc3 21:34 CBC with Diff Sent. rc3 23:42 Patient has correct armband on for positive identification. Call light in reach. Side rg5 rails up X 1. Provided Education on: post er care. 23:42 No provider procedures requiring assistance completed. Flushed left antecubital. rg5 23:44 Door closed. Noise minimized. Warm blanket given. rg5 23:59 IV discontinued. jh8 Administered Medications: 23:58 Discontinued: ns 0.9% 1000 ml IV at 1 bolus Per protocol; 1000 mL bolus jh8 23:57 Discontinued: ns 0.9% 1000 ml IV at 1 bolus Per protocol; 1000 mL bolus 8 21:37 Drug: NS 0.9% IV 1000 ml IV at 1 bolus Per protocol; 1000 mL bolus Route: IV; Rate: 1 rg5 bolus; Site: left antecubital; 23:58 Follow up: Response: No adverse reaction; IV Status: Completed infusion 8 21:37 Drug: Ketorolac IVP 30 mg IVP once Route: IVP; Site: left antecubital; rg5 23:58 Follow up: Response: No adverse reaction jh8 21:37 Drug: metoCLOPramide IVP 10 mg IVP once; over 1 to 2 minutes Route: IVP; Site: left rg5 antecubital; 23:58 Follow up: Response: No adverse reaction jh8 21:37 Drug: Lidocaine Infiltration (1 %) 20 ml 20 ml Infiltration once; to bedside Volume: 20 rg5 ml; Route: Infiltration; 23:57 Follow up: Response: No adverse reaction 8 21:38 Drug: NS 0.9% IV 1000 ml IV at 1 bolus Per protocol; 1000 mL bolus Route: IV; Rate: 1 rg5 bolus; Site: left antecubital; 23:58 Follow up: Response: No adverse reaction; IV Status: Completed infusion 8 Medication: 23:42 VIS not applicable for this client. rg5 Outcome: 23:50 Discharge ordered by . ellen 23:59 Discharged to home ambulatory, [facility] 23:59 Condition: good 23:59 Discharge instructions given to patient, Instructed on discharge instructions, follow up and referral plans. wound care, Demonstrated understanding of instructions, follow-up care, wound care, 11/14 00:00 Patient left the ED. [facility] Signatures: Mau Figueroa MD MD sp4 Aylin Matos Toni RN RN 4 Sharlene Lucero 3 Mat Randall, RN RN 8 Juan Ramon Rivas RN RN rg5 Corrections: (The following items were deleted from the chart) 11/13 21:29 21:20 BP 123 / 65; Pulse 62bpm; Resp 18bpm; Pulse Ox 99% RA; Temp 98.7F; 113.4 kg; tl4 Height 5 ft. 10 in.; BMI: 35.8; Pain 0/10, Adult; tl4
[2023-11-15 01:08] VITALS: BP 130/68; TEMP 98; O2SAT 97
--- NOTE | 2023-11-15 14:33 | EKG ---
Test Date: 2023-11-14 Test Time: 21:29:41 Commutator Tester: ALLIE MEASUREMENT RESULTS: Intervals: Rate: 78 WA: 170 QRSD: 104 QT: 370 QTc: 421 [place]: P: 46 WA: 170 QRS: 87 T: 36 INTERPRETIVE STATEMENTS: Normal sinus rhythm Normal ECG No previous ECG available for comparison Electronically Signed On 11-15-23 14:32:07 CDT by Joaquin Addison
== END 2023-11-15 | disposition home or self-care (01) ==
LOC: ER 21:11
PROC: 0HQDXZZ Repair Right Lower Arm Skin, External Approach (ICD-10-PCS; principal; 2023-11-15)
DX: S51.811A Laceration without foreign body of right forearm, initial encounter (principal); R55 Syncope and collapse
CPT/HCPCS: 96361; 93005; 85025; 36415; 80053; 96375; 96374; 99284; 82077; 12002; J2001 ×2; J2765; J7030 ×2